=== PATIENT | female | born 1980 | race Caucasian/White ===

== ENCOUNTER 2025-02-10 14:03 | Emergency (ER) | payer OTHER, SELFPAY ==
[2025-02-10] VITALS (7 sets, daily range): BP systolic 112–147; BP diastolic 65–87; PULSE 73–112; RESP 16–20; TEMP 36.9–38.3; O2SAT 95–96; BMI 35.6
--- NOTE | 2025-02-10 15:13 | XR_ITS ---
Examination: PA lateral chest 2 views Technique: Upright PA lateral chest 2 views Date and time: February 10, 2025 at 1520 hrs. Indications: Coughing fever one week. Findings: Pneumonia right base Normal heart size Left lung clear Impression: Significant pneumonia right base
--- NOTE | 2025-02-10 15:13 | PD.EDRME ---
Rapid Medical Screening Exam RME Arrival date/time: 02/10/25 14:03 44-year-old female presents to the emergency department today for complaints of nausea vomiting Chief Complaint: Flu Like Symptoms Vital signs: Vital Signs Temperature 99.2 F 02/10/25 14:16 Pulse Rate 112 H 02/10/25 14:16 Respiratory Rate 20 02/10/25 14:16 Blood Pressure 147/87 H 02/10/25 14:16 Pulse Oximetry (%) 95 02/10/25 14:16 Oxygen Delivery Method Room Air 02/10/25 14:16
[2025-02-10 15:28] LABS: Collection Type, Urine Clean Catch; Lactate (Lactic Acid) 0.9 mMol/L (0.4-2.0)
[2025-02-10 15:31] LABS: Basophils % (Auto) 0 % (0-2.5); Eosinophils # (Auto) 0.1 Thou/mm3 (0.0-0.5); Eosinophils % (Auto) 1 % (0-10); Hematocrit 32.8 % (36.0-46.0); Hemoglobin 11.7 g/dL (12.0-16.0); Immature Granulocytes % (Auto) 0 % (0-0); Immature Granulocytes Auto 0.02 Thou/mm3 (0.00-0.00); Lymphocytes # (Auto) 1.1 Thou/mm3 (1.0-4.8); Lymphocytes % (Auto) 16 % (10-50); Mean Corpuscular HGB Conc 35.7 g/dl (31.0-37.0); Mean Corpuscular Hemoglobin 34.7 pg (25.0-35.0); Mean Corpuscular Volume 97 fL (80-100); Monocytes # (Auto) 0.5 Thou/mm3 (0.0-0.8); Monocytes % (Auto) 8 % (0-12); Neutrophils # (Auto) 4.8 Thou/mm3 (1.8-7.7); Neutrophils % (Auto) 74 % (37-80); Nucleated Red Blood Cell % 0 /100 WBC (0); Platelet Count 210 Thou/mm3 (140-440); RDW Standard Deviation 45.1 fL (36.4-46.3); Red Blood Count 3.37 Miln/mm3 (4.00-5.20); White Blood Count 6.5 Thou/mm3 (3.6-11.0)
[2025-02-10 15:39] LABS: Bacteria,Urine Rare; Bilirubin,Urine Negative (Negative); Blood,Urine 2+ (Negative); Clarity,Urine Clear (Clear/Hazy); Color,Urine Yellow (Lt Yel-Yel); Glucose, Urine Negative (Negative); Ketones,Urine 2+ (Negative); Leukocyte Esterase,Urine Positive (Negative); Nitrite,Urine Negative (Negative); PH,Urine 6.5 (5.0-7.0); Protein,Urine 1+ (Neg - Trace); RBC,Urine 5 /hpf (0-3); Specific Gravity,Urine 1.023 (1.001-1.035); Squamous Epithelial Cell,Urine 3 /hpf (0-5); WBC,Urine 2 /hpf (0-5)
[2025-02-10 15:58] LABS: Alanine Aminotransferase 9 U/L (10-49); Albumin, Serum 4.3 gm/dL (3.5-5.0); Alkaline Phosphatase 88 U/L (46-116); Anion Gap 11 (7-16); BUN/Creatinine Ratio 11 Ratio (12-20); Bilirubin,Total 0.5 mg/dL (0.3-1.2); Blood Urea Nitrogen 8 mg/dL (9-23); Carbon Dioxide 25.5 mMol/L (20.0-31.0); Chloride 101 mMol/L (98-107); Creatinine (Component) 0.7 mg/dL (0.6-1.3); Globulin 2.2 gm/dL (2.3-3.5); Glucose 100 mg/dL (74-106); Osmolality,Calculated 272 (275-295); Potassium 3.7 mMol/L (3.4-5.1); Sodium 137 mMol/L (136-145); Total Protein 6.5 gm/dL (5.7-8.2); eGFR > 60 See Note
--- NOTE | 2025-02-10 16:27 | PD.EDURI ---
Upper Respiratory Inf. RME/HPI General Chief Complaint: Flu Like Symptoms Stated Complaint: FEVER, RAMIREZ, ABD PAIN, BODYACHES, NO APPETITE Time Seen by Provider: 02/10/25 15:38 Arrival date/time: 02/10/25 14:03 This is a 44-year-old female that comes into the emergency room with complaints of cough, sore throat, body aches, chills, and headache for the past week. Patient was seen by primary provider and was prescribed Zofran and metronidazole. Patient states that she was not told why she was prescribed this antibiotic. RME / HPI RME / HPI Narrative: 02/10/25 14:03 44-year-old female presents to the emergency department today for complaints of nausea vomiting Related Data Previous Rx's ?Medication ?Instructions ?Recorded Hydrocodone/Acetaminophen * (NORCO 1 tab PO Q4H PRN pain #30 tabs 08/21/15 5/325 *) albuterol sulfate 90 mcg/actuation 2 puff inhalation QID PRN 02/10/25 aerosol inhaler shortness of breath or wheezing #8.5 grams levofloxacin 750 mg tablet 750 mg PO QDAY #5 tabs 02/10/25 Allergies Allergy/AdvReac Type Severity Reaction Status Date / Time No Known Allergies Allergy Verified 02/10/25 14:10 Course Orders Category Date Time Status Bedside COVID-19 Antigen Test NOW Care 02/10/25 15:13 Active Bedside Influenza A&B Antigen Test NOW Care 02/10/25 15:[address] Screening NOW Care 02/10/25 16:50 Active IV [Insert IV] STAT Care 02/10/25 16:[address] angio chest Stat Exams 02/10/25 16:50 Completed XR chest 2V Stat Exams 02/10/25 15:13 Completed Blood Culture (Lab) Stat Lab 02/10/25 15:23 Received CBC Stat Lab 02/10/25 15:20 Completed Comprehensive Metabolic Panel Stat Lab 02/10/25 15:20 Completed Lactate (Lactic Acid) Stat Lab 02/10/25 15:20 Completed Procalcitonin Stat Lab 02/10/25 15:20 Completed Urinalysis Stat Lab 02/10/25 15:20 Completed Urine Culture Stat Lab 02/10/25 15:20 Received Acetaminophen Tab [Tylenol ES Tab] Med 02/10/25 16:40 Discontinued 1,000 mg PO X1 ONE Dexamethasone Inj [Decadron Inj] Med 02/10/25 16:40 Discontinued 10 mg PO X1 ONE Ibuprofen Tab [Motrin Tab] Med 02/10/25 16:40 Discontinued 800 mg PO X1 ONE cefTRIAXone [Rocephin] 1,000 mg Med 02/10/25 16:38 Discontinued Lidocaine 1% 20 ml [Xylocaine 1% 20 ML] 2.1 ml IM X1 cefTRIAXone [Rocephin] 1,000 mg Med 02/10/25 19:56 Ordered Lidocaine 1% 20 ml [Xylocaine 1% 20 ML] 2.1 ml IM X1 Vital Signs Vital signs: Vital Signs Temperature 99.2 F 02/10/25 14:16 Pulse Rate 112 H 02/10/25 14:16 Respiratory Rate 20 02/10/25 14:16 Blood Pressure 147/87 H 02/10/25 14:16 Pulse Oximetry (%) 95 02/10/25 14:16 Oxygen Delivery Method Room Air 02/10/25 14:16 Upper Respiratory Infection MDM Narrative MDM Narrative:: chest x ray shows: Findings: Pneumonia right base Normal heart size Left lung clear Impression: Significant pneumonia right base [place] yemaggie let Findings: No thoracic aortic aneurysmal dilatation or dissection Pulmonary artery opacification is quite poor no gross filling defects Dense pneumonia in the right lower lobe Mild right pleural disease No visualized liver or splenic lesion Gallbladder is mildly distended and no stones No pancreatic mass Kidneys partially visualized no hydronephrosis IMPRESSION: Pulmonary artery opacification is quite poor, no gross filling defects Prominent pneumonia right lower lobe with mild right pleural fluid I reviewed chest x-ray with Dr. Hernandez as there was a possibility of it looking like an effusion to the right side. Patient arrives to the emergency room febrile at 101. COVID flu negative. White count is 6.5, hemoglobin and hematocrit are 11.7 and 32.8 BNP is unremarkable procalcitonin is 0.10 urine is positive for protein, ketones, blood leukocyte Estrace positive RBCs positive. Medications / Prescriptions Medication administrations:: Medication Administration History Ceftriaxone Sodium 1,000 mg/ (Lidocaine HCl 2.1 ml) 0 mg IM X1 ONE Stop: 02/10/25 19:57 Discontinued Medications Acetaminophen (Acetaminophen 500 Mg Tablet) 1,000 mg PO X1 ONE Stop: 02/10/25 16:41 Last Admin: 02/10/25 17:01 Dose: 1,000 mg Documented By: YAN Ceftriaxone Sodium 1,000 mg/ (Lidocaine HCl 2.1 ml) 0 mg IM X1 ONE Stop: 02/10/25 16:39 Last Admin: 02/10/25 17:08 Dose: Not Given Documented By: NIYAH Non-Admin Reason: Cancelled by Provider Dexamethasone Sodium Phosphate (Dexamethasone Sod Phos Inj 10 Mg/Ml Vial) 10 mg PO X1 ONE Stop: 02/10/25 16:41 Last Admin: 02/10/25 17:08 Dose: Not Given Documented By: NIYAH Non-Admin Reason: Cancelled by Provider Ibuprofen (Ibuprofen Tab 400 Mg Tablet) 800 mg PO X1 ONE Stop: 02/10/25 16:41 Last Admin: 02/10/25 17:02 Dose: 800 mg Documented By: YAN Discharge Plan Plan Patient Disposition: HOME (Self Care) Patient condition on transfer: Stable Prescriptions/Referrals Prescriptions/Med Rec: New levofloxacin 750 mg tablet 750 mg PO QDAY Qty: 5 0RF albuterol sulfate 90 mcg/actuation HFA aerosol inhaler 2 puff inhalation QID PRN (Reason: shortness of breath or wheezing) Qty: 8.5 0RF No Action Hydrocodone/Acetaminophen * (NORCO 5/325 *) 1 TAB tablet 1 tab PO Q4H PRN (Reason: pain) Qty: 30 0RF Referrals: Yoon Beltran 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 Come back to ED if symptoms change or worsen Print Language: Faroese Stand Alone Forms: Marilia Award Info., Patient Portal Info Letter PA/ROOFING TECHNICIAN Supervising Physician PA/OMID Supervising Physician: norma
--- NOTE | 2025-02-10 16:50 | XR_ITS ---
Examination: CTA chest with intravenous contrast 2-D reconstructions 3-D reconstructions, vascular Date and time of exam: February 1900 hours INDICATIONS: Fever shortness of breath coughing 2 weeks 6 CTDI: vol (mGy) 12.7 DLP: (mGycm) 486 Technique: Multiple axial sections of the thorax have been obtained. 3 mm slice thickness, from below the hemidiaphragms to above the apices of the lungs. Mediastinal and lung density settings have been obtained. 2-D sagittal and coronal reconstructions. 3-D angiographic renderings, 3-D volume renderings, 3D post processing, vascular maximum intensity projections obtained. Contrast administered is 100 cc Isovue 370 intravenous. Low dose protocols were performed. One or more of the following dose reduction techniques were used; automated exposure control, adjustment of the mA and/or KV according to patient size, use of iterative reconstruction technique. Findings: No thoracic aortic aneurysmal dilatation or dissection Pulmonary artery opacification is quite poor no gross filling defects Dense pneumonia in the right lower lobe Mild right pleural disease No visualized liver or splenic lesion Gallbladder is mildly distended and no stones No pancreatic mass Kidneys partially visualized no hydronephrosis IMPRESSION: Pulmonary artery opacification is quite poor, no gross filling defects Prominent pneumonia right lower lobe with mild right pleural fluid
[2025-02-10] MEDS: ACETAMINOPHEN 500 MG TABLET 1000 MG PO (17:01)
[2025-02-10] MEDS: IBUPROFEN TAB 400 MG TABLET 800 MG PO (17:02)
[2025-02-10] MEDS: cefTRIAXone 1,000 MG, LIDOCAINE 1% 20 ML 2.1 ML IM (20:18)
== END 2025-02-10 20:27 | disposition home or self-care (01) ==
PROVIDERS: Nurse Practitioner Primary Care; Emergency Provider Family Medicine; PCP Nurse Practitioner Family
DX: J18.9 Pneumonia, unspecified organism (principal); J45.909 Unspecified asthma, uncomplicated; J90 Pleural effusion, not elsewhere classified
CPT/HCPCS: 36415; 71046; 71275; 80053; 81001; 83605; 84145; 85025; 87040; 87086; 87400; 87811; 96372; 99285; A4649; J0696; J3490; Q9967; A9270